=== PATIENT | male | born 1980 | race Caucasian/White ===

== ENCOUNTER 2024-10-11 10:22 | Day surgery (SDC) | payer OTHER ==
--- NOTE | 2024-10-11 09:13 | HP ---
HISTORY OF PRESENT ILLNESS: The patient said he had a bulge in the mid abdomen, larger at times. No pain now. He has had some rectal bleeding. He had a family history of an aunt with colon cancer. He is in need of colonoscopy. 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 PAST MEDICAL HISTORY: Psoriatic arthritis. HOME MEDICATIONS: See MAR. Multiple vitamins. ALLERGIES: No known drug allergies. PAST SURGICAL HISTORY: He had vasectomy in the past. SOCIAL HISTORY: No smoking. Occasional alcohol use. FAMILY HISTORY: Prostate cancer in his father, aunt had colon cancer. REVIEW OF SYSTEMS: Twelve systems reviewed. No chest pain or palpitations. Other systems negative or noncontributory as above and per preadmission questionnaire. PHYSICAL EXAMINATION: GENERAL: Height 5 feet 10 inches. BMI 38.74. No acute distress. HEENT: Sclerae anicteric. Extraocular movements intact. NECK: No JVD. CARDIOVASCULAR: Regular rate and rhythm. RESPIRATORY: Equal excursion, nonlabored breathing. ABDOMEN: Soft. Incarcerated ventral hernia mid abdomen, nontender, likely fat contents. SKIN: Dry. EXTREMITIES: No cyanosis or edema. NEUROLOGIC: Alert and oriented, moving extremities. PSYCHIATRIC: Appropriate mood and affect. IMPRESSION: Regarding his incarcerated ventral hernia, he is not having any pain now. 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 He was explained risks in detail, not limited to, bleeding, infection; risk of bowel injury or perforation; risk of adhesion or scar formation or obstruction; risk of hernia recurrence; risk of mesh infection and possibly removal; risk of mesh fracture or failure possibly creating issues with this or other structures possibly requiring other procedures; risk of ongoing morbidity and mortality; general risk of aches, pains, burning or numbness, possibly long-term; risk of anesthesia, DVT, PE, pneumonia, not limited to. Regarding his second problem, history of rectal bleeding and family history of colon cancer, he is agreeable to proceed with colonoscopy under MAC anesthesia. General risk of bleeding, infection; risk of bowel injury or perforation; risk of missed or nondiagnosis or incomplete exam possibly requiring barium enema or other studies or procedures; general risk of anesthesia, sedation; risk of bowel prep, not limited to. We will proceed with outpatient colonoscopy under MAC anesthesia. Otherwise, continue medications for psoriasis and his weight loss medication.
[2024-10-11] MEDS: Lactated Ringers 1,000 ML IV SCH (10:37)
[2024-10-11 10:48] VITALS: RESP 16
[2024-10-11] MEDS ORDERED: Xylocaine-Mpf 2% 5 Ml Vial ONE (12:50)
[2024-10-11] MEDS ORDERED: propofoL IV ONE ×2 (12:50→13:07)
[2024-10-11] MEDS ORDERED: Versed 2 MG/2 ML Injection ONE (12:51)
[2024-10-11] MEDS ORDERED: SUBLIMAZE 100 MCG/2 ML ONE (13:01)
[2024-10-11 13:39] VITALS: O2SAT 98
[2024-10-11 13:52] VITALS: BP 127/74; PULSE 62; TEMP 97.2
--- NOTE | 2024-10-12 12:20 | OP ---
SURGERY DATE/TIME: 10/11/2024 [id number] PREOPERATIVE DIAGNOSES: 1) History of psoriatic arthritis. 2) Family history of colon cancer. 3) History of some rectal bleeding. POSTOPERATIVE DIAGNOSES: 1) ASA class 2. 2) Fair bowel prep. 3) Withdrawal time approximately 8 minutes. 4) Diverticulosis, left colon. 5) Small early polyp versus hyperplastic lesions x2, transverse colon. 6) Small internal hemorrhoids. PROCEDURE: Colonoscopy to the cecum with hot biopsy polypectomy of small early polyps versus hyperplastic lesions x2, transverse colon. SURGEON: Jimmie Mcfarland MD ANESTHESIA: MAC. ESTIMATED BLOOD LOSS: Minimal. INDICATIONS: As noted above, consent was obtained. DESCRIPTION OF PROCEDURE AND FINDINGS: The patient was taken to the operating endoscopy room. After official time-out and no disagreement with planned procedure, he had MAC anesthesia. Digital rectal exam did not reveal any rectal masses. He did have some small internal hemorrhoids. Videocolonoscope was inserted and passed up through the slightly tortuous sigmoid, descending, transverse, and ascending colon around to the cecum. Appendiceal orifice and valve well visualized and photo documented. Prep overall was fair, a little bit of liquidy semisolid stool throughout the colon just slightly limiting exam for small lesions. The scope was carefully withdrawn over the next 8 minutes. Stopping in the transverse cancer to remove a couple little 2 mm early polyps versus hyperplastic lesions with the hot biopsy forceps. Good hemostasis noted. He had some mild diverticulosis in the left colon. There were no signs of any large polyps, masses, or obstructing lesions. He did have some small internal hemorrhoids. There were no signs of any large polyps, masses, or obstructing lesions. The scope was withdrawn. Patient tolerated the procedure well. Findings discussed with family out in the waiting area. He should continue high-fiber diet or Metamucil, titrate to soft bulky stools. He is to avoid straining when he does have bowel movements to minimize any progression of the small hemorrhoids.
== END 2024-10-11 13:59 | disposition home or self-care (01) ==
LOC: SDC 10:22
PROVIDERS: ATTEND Surgery
DX: Z87.19 Personal history of other diseases of the digestive system (principal); Z87.2 Personal history of diseases of the skin and subcutaneous tissue; Z80.0 Family history of malignant neoplasm of digestive organs; K57.30 Diverticulosis of large intestine without perforation or abscess without bleeding; K63.5 Polyp of colon; K64.8 Other hemorrhoids
CPT/HCPCS: J2250; J2704; J3010